=== PATIENT | male | born 1990 | race Caucasian/White ===

== ENCOUNTER 2016-10-22 19:50 | Emergency (ER) | END 2016-10-22 20:57 | disposition left against medical advice (07) | LOC: UCEAST 19:50 | DX: J11.1 Influenza due to unidentified influenza virus with other respiratory manifestations (principal); Z53.21 Procedure and treatment not carried out due to patient leaving prior to being seen by health care provider ==

== ENCOUNTER 2016-10-23 08:26 | Emergency (ER) | payer BC ==
[2016-10-23 08:48] VITALS: BP 113/78
--- NOTE | 2016-10-23 09:18 | UC ---
Respiratory Complaint HPI - HPI Summary HPI Summary: The patient comes in today for: 1. Cough: Onset: 4 weeks. Palliative/provocative: Nothing makes the cough better or worse. Quality: Bark, dry. Region: Lungs Severity: 0/10 Time: Cough comes and goes. Associated symptoms: Cough production: None. Rhinitis: Clear Wheezing/dyspnea: None. Pertussis exposure: None. 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 - Allergies/Home Medications Allergies/Adverse Reactions: Allergies Allergy/AdvReac Type Severity Reaction Status Date / Time Bee Stings Allergy Swelling Uncoded 10/23/16 08:42 Home Medications: Home Medications Kprrxhtewdziv-Lqzokgrkrja-Lq [Theraflu Cold & Cough] 1 gonsalo PO BID PRN 10/23/16 [ History Confirmed 10/23/16] PMH/Surg Hx/FS Hx/Imm Hx Previously Healthy: Yes Endocrine History Of: Denies: Diabetes, Thyroid Disease, Hyperthyroidism, Hypothyroidism, Dyslipidemia Cardiovascular History Of: Denies: Cardiac Disorders, Hypertension, Pacemaker/ICD, Myocardial Infarction , Congestive Heart Failure, Atrial Fibrillation, Deep Vein Thrombosis, Bleeding Disorders Respiratory History Of: Denies: COPD, Asthma, Bronchitis, Pneumonia, Pulmonary Embolism GI/ History Of: Denies: Gastroesophageal Reflux, Ulcer, Gastrointestinal Bleed, Gall Bladder Disease, Kidney Stones, Diverticulitis, Renal Disease, Urosepsis Neurological History Of: Denies: TIA, CVA, Dementia, Seizures, Migraine Psychological History Of: Denies: Anxiety, Depression, Bipolar Disorder, Schizophrenia, Post Traumatic Stress Disorder Cancer History Of: Denies: Lung Cancer, Colorectal Cancer, Breast Cancer, Prostate Cancer, Cervical Cancer Other History Of: Negative For: HIV, Hepatitis B, Hepatitis C, Anticoagulant Therapy - Surgical History Surgical History: Yes Surgery Procedure, Year, and Place: wisdom teeth - Family History Known Family History: Positive: Cardiac Disease, Hypertension, Diabetes - Social History Occupation: Employed Full-time Alcohol Use: Occasionally Alcohol Amount: WEEKENDS Substance Use Type: None Smoking Status (MU): Never Smoked Tobacco Have You Smoked in the Last Year: No - Immunization History Most Recent Influenza Vaccination: not this season Review of Systems Constitutional: Negative Skin: Negative Eyes: Negative ENT: Negative Respiratory: Cough Cardiovascular: Negative Gastrointestinal: Negative Genitourinary: Negative All Other Systems Reviewed And Are Negative: Yes Physical Exam Triage Information Reviewed: Yes Appearance: Well-Appearing, No Pain Distress, Well-Nourished Vital Signs: Initial Vital Signs Temp 98.1 F 10/23/16 08:44 Pulse 91 10/23/16 08:44 Resp 16 10/23/16 08:44 BP 113/78 10/23/16 08:44 Pulse Ox 99 10/23/16 08:44 Vital Signs Reviewed: Yes Eyes: Positive: Conjunctiva Clear. Negative: Discharge ENT: Positive: Hearing grossly normal. Negative: Pharyngeal erythema, Nasal congestion, Nasal drainage, TM bulging, TM dull, TM red, Tonsillar swelling, Tonsillar exudate Dental: Negative: Gross Decay/Caries @, Dental Fracture @ Neck: Positive: Supple, Nontender, No Lymphadenopathy. Negative: Nuchal Rigidity Respiratory: Positive: Chest non-tender, Lungs clear, No respiratory distress, No accessory muscle use. Negative: Crackles, Wheezing Abdomen Description: Positive: Nontender, No Organomegaly, Soft, Distended Musculoskeletal: Positive: Strength Intact, ROM Intact, No Edema Neurological: Positive: Alert, Muscle Tone Normal Psychological: Positive: Age Appropriate Behavior, Consolable Skin: Negative: rashes, breakdown UC Diagnostic Evaluation - Laboratory O2 Sat by Pulse Oximetry: 99 - Radiology Xray Interpretation: No Acute Changes - IMPRESSION: No active cardiopulmonary disease is noted. Radiology Interpretation Completed By: Radiologist Respiratory Course/Dx - Course Course Of Treatment: patient was told of the negative CXR and my diagnosis of post-infectious cough. REcommended getting PCP and follow up in one week. - Differential Dx/Diagnosis Differential Diagnosis/HQI/PQRI: Laryngitis, Lower Resp Infection, Sinusitis, Other - post infectious cough. Provider Diagnoses: Post infectious cough Discharge - Discharge Plan Condition: Stable Disposition: HOME Patient Education Materials: Chronic Cough (ED) Referrals: Cely Sharp NP [Primary Care Provider] - 1 Week (Please follow up with your primary care provider as needed. If you dont' have a primary care provider, please reference the list of local primary care providers. If you get worse, please be seen again.)
--- NOTE | 2016-10-23 09:39 | RAD ---
Indication: Chronic cough. 2 views of the chest including dual energy PA views demonstrate no mediastinal shift. Heart is of normal size and configuration. Lung og are clear. When compared to previous exam of February 28, 2015 no significant change is noted. IMPRESSION: No active cardiopulmonary disease is noted.
== END 2016-10-23 09:54 | disposition home or self-care (01) ==
LOC: UCCORT 08:26
DX: R05 Cough (principal)
CPT/HCPCS: 71020; 99212; G0463

== ENCOUNTER 2017-01-14 09:56 | Emergency (ER) | payer BC ==
[2017-01-14 10:21] VITALS: BP 124/75
--- NOTE | 2017-01-14 10:40 | UC ---
Ear Complaint HPI - HPI Summary HPI Summary: patient has had right ear pain, cough and allergy type symtpoms. - History of Current Complaint Chief Complaint: UCRespiratory Stated Complaint: COUGH,RIGHT EAR COMPLAINT Time Seen by Provider: 01/14/17 10:24 Hx Obtained From: Patient Onset/Duration: Sudden Onset, Lasting Days Severity Initially: Moderate Severity Currently: Moderate - Allergies/Home Medications Allergies/Adverse Reactions: Allergies Allergy/AdvReac Type Severity Reaction Status Date / Time Bee Stings Allergy Swelling Uncoded 01/14/17 10:09 Home Medications: Home Medications Cetirizine* [ZyrTEC 10 MG TAB*] 10 mg PO DAILY 01/14/17 [History Confirmed 01/14] PMH/Surg Hx/FS Hx/Imm Hx Previously Healthy: Yes Endocrine History Of: Denies: Diabetes, Thyroid Disease, Hyperthyroidism, Hypothyroidism, Dyslipidemia Cardiovascular History Of: Denies: Cardiac Disorders, Hypertension, Pacemaker/ICD, Myocardial Infarction , Congestive Heart Failure, Atrial Fibrillation, Deep Vein Thrombosis, Bleeding Disorders Respiratory History Of: Denies: COPD, Asthma, Bronchitis, Pneumonia, Pulmonary Embolism GI/ History Of: Denies: Gastroesophageal Reflux, Ulcer, Gastrointestinal Bleed, Gall Bladder Disease, Kidney Stones, Diverticulitis, Renal Disease, Urosepsis Neurological History Of: Denies: TIA, CVA, Dementia, Seizures, Migraine Psychological History Of: Denies: Anxiety, Depression, Bipolar Disorder, Schizophrenia, Post Traumatic Stress Disorder Cancer History Of: Denies: Lung Cancer, Colorectal Cancer, Breast Cancer, Prostate Cancer, Cervical Cancer Other History Of: Negative For: HIV, Hepatitis B, Hepatitis C, Anticoagulant Therapy - Surgical History Surgical History: Yes Surgery Procedure, Year, and Place: wisdom teeth - Family History Known Family History: Positive: Cardiac Disease, Hypertension, Diabetes - Social History Alcohol Use: Occasionally Alcohol Amount: WEEKENDS Substance Use Type: None Smoking Status (MU): Never Smoked Tobacco Have You Smoked in the Last Year: No - Immunization History Most Recent Influenza Vaccination: not this season Review of Systems Constitutional: Fever, Fatigue Skin: Negative Eyes: Negative ENT: Sore Throat, Ear Ache, Nasal Discharge Respiratory: Cough Cardiovascular: Negative Gastrointestinal: Negative Genitourinary: Negative Motor: Negative Neurovascular: Negative Musculoskeletal: Negative Neurological: Negative Psychological: Negative All Other Systems Reviewed And Are Negative: Yes Physical Exam Triage Information Reviewed: Yes Appearance: Well-Nourished, Ill-Appearing, Pain Distress Vital Signs: Initial Vital Signs Temp 97.4 F 01/14/17 10:09 Pulse 74 01/14/17 10:09 Resp 16 01/14/17 10:09 BP 124/75 01/14/17 10:09 Pulse Ox 98 01/14/17 10:09 Vital Signs Reviewed: Yes Eye Exam: Normal Eyes: Positive: Conjunctiva Clear ENT Exam: Normal ENT: Positive: Hearing grossly normal, Pharyngeal erythema, Nasal drainage, TM bulging, TM dull, TM red, Tonsillar swelling Dental Exam: Normal Neck exam: Normal Neck: Positive: Supple, Nontender, No Lymphadenopathy Respiratory Exam: Normal Respiratory: Positive: Chest non-tender, Lungs clear, Normal breath sounds Cardiovascular Exam: Normal Cardiovascular: Positive: RRR, No Murmur, Pulses Normal Abdominal Exam: Normal Abdomen Description: Positive: Nontender, No Organomegaly, Soft Bowel Sounds: Positive: Present Musculoskeletal Exam: Normal Musculoskeletal: Positive: Strength Intact, ROM Intact, No Edema Neurological Exam: Normal Neurological: Positive: Alert, Muscle Tone Normal Psychological Exam: Normal Skin Exam: Normal Ear Complaint Course/Dx - Course Course Of Treatment: hx obtained, exam performed, meds reviewed, treated for right otitis media - Differential Dx/Diagnosis Differential Diagnosis/HQI/PQRI: Cellulitis, Cerumen Impaction, Otitis Externa, Otitis Media, URI Provider Diagnoses: right otitis media Discharge - Discharge Plan Condition: Stable Disposition: HOME Patient Education Materials: Otitis Media (ED) Additional Instructions: 1. take the medication as prescribed. increase your fluid intake and get plenty of rest.
== END 2017-01-14 10:49 | disposition home or self-care (01) ==
LOC: UCCORT 09:56
DX: H66.91 Otitis media, unspecified, right ear (principal); R05 Cough
CPT/HCPCS: 99212; G0463

== ENCOUNTER 2017-02-17 10:04 | Emergency (ER) | payer BC ==
[2017-02-17 10:49] VITALS: BP 141/92
--- NOTE | 2017-02-17 11:35 | UC ---
Respiratory Complaint HPI - HPI Summary HPI Summary: The patient comes in today for: 1. Cough: Onset: 6 months. Palliative/provocative: He coughs a lot in the morning which is thin clear mucous, but other times it was thick and yellow. Quality: Dry and wet at times. Region: [place]. Severity: mild Time: Cough comes and goes. Associated symptoms: Previous treatment: He was put on an Atrovent inhaler (2 puffs four times a day). He was also treated with an ear infection for which he was treated with Augmentin. The ear infection improved, but the cough did not. The inhaler did not help. Primary care provider: Dr. Tay. Heartburn: None. Itchy nose negative, but he states that he has "mild allergies." * - History of Current Complaint Chief Complaint: UCRespiratory Stated Complaint: UPPER RESPIRATORY Time Seen by Provider: 02/17/17 11:29 Hx Obtained From: Patient - Allergies/Home Medications Allergies/Adverse Reactions: Allergies Allergy/AdvReac Type Severity Reaction Status Date / Time Bee Stings Allergy Swelling Uncoded 02/17/17 10:49 PMH/Surg Hx/FS Hx/Imm Hx Previously Healthy: No Other History Of: Negative For: HIV, Hepatitis B, Hepatitis C, Anticoagulant Therapy - Surgical History Surgical History: None Surgery Procedure, Year, and Place: wisdom teeth - Family History Known Family History: Positive: Cardiac Disease, Hypertension, Diabetes - Social History Occupation: Employed Full-time Alcohol Use: Occasionally Alcohol Amount: WEEKENDS Substance Use Type: None Smoking Status (MU): Never Smoked Tobacco Have You Smoked in the Last Year: No - Immunization History Most Recent Influenza Vaccination: not this season Review of Systems Constitutional: Negative Skin: Negative Eyes: Negative ENT: Negative Respiratory: Cough Cardiovascular: Negative Gastrointestinal: Negative Genitourinary: Negative All Other Systems Reviewed And Are Negative: Yes Physical Exam Triage Information Reviewed: Yes Appearance: Well-Appearing, No Pain Distress, Well-Nourished, Signs of Trauma - Minimal coughing in the exam room., Other: Vital Signs: Initial Vital Signs Temp 99 F 02/17/17 10:42 Pulse 98 02/17/17 10:42 Resp 14 02/17/17 10:42 BP 141/92 02/17/17 10:42 Pulse Ox 99 02/17/17 10:42 Vital Signs Reviewed: Yes Eyes: Positive: Conjunctiva Clear. Negative: Discharge ENT: Positive: Hearing grossly normal. Negative: Pharyngeal erythema, Nasal congestion, Nasal drainage, TM bulging, TM dull, TM red, Tonsillar swelling, Tonsillar exudate Dental: Negative: Gross Decay/Caries @, Dental Fracture @ Neck: Positive: Supple, Nontender, No Lymphadenopathy. Negative: Nuchal Rigidity Respiratory: Positive: Lungs clear, No respiratory distress, No accessory muscle use. Negative: Crackles, Wheezing Cardiovascular: Positive: RRR, No Murmur, Pulses Normal Abdomen Description: Positive: Nontender, No Organomegaly, Soft. Negative: Distended, Guarding Musculoskeletal: Positive: Strength Intact, ROM Intact Neurological: Positive: Alert, Muscle Tone Normal Psychological: Positive: Age Appropriate Behavior, Consolable Skin: Negative: rashes, breakdown UC Diagnostic Evaluation - Laboratory O2 Sat by Pulse Oximetry: 99 - Radiology Xray Interpretation: No Acute Changes - CT no sinusitis Radiology Interpretation Completed By: Radiologist Respiratory Course/Dx - Course Course Of Treatment: Patient told of the many causes of chronic cough, (occult GERD, occult sinusitis, tumor, polyps, postnasal drip, post-infectious cough) and that the work up for a chronic cough is best managed by his primary care provider. But, to get things started we ordered a CT of the head (-) and now will be treating for occult GERD. He is to follow up with his primary care regarding this to see if he responds and if not, what further workup he will need. - Differential Dx/Diagnosis Provider Diagnoses: chronic cough. Discharge - Discharge Plan Condition: Stable Disposition: HOME Patient Education Materials: Chronic Cough (ED) Referrals: Cely Sharp NP [Primary Care Provider] - 2 Weeks
--- NOTE | 2017-02-17 12:12 | RAD ---
CLINICAL HISTORY: Occult sinusitis COMPARISON: None TECHNIQUE: Contiguous axial CT images were obtained through the paranasal sinuses, without intravenous contrast, with coronal and sagittal multiplanar reformations. FINDINGS: NASAL CAVITY: Septum: The nasal septum is slightly deviated to the left with left-sided spurring. Right: Clear Left: Clear SINUSES AND DRAINAGE PATHWAYS: Frontal sinuses: Unremarkable. Maxillary sinuses: Unremarkable Ethmoid sinuses: Unremarkable. Ostiomeatal complex: Patent without obstruction or occlusion. Sphenoid sinuses: Unremarkable. Anatomic variations: No significant variations. Orbits: Unremarkable. Anterior cranial fossa: Normal. Other findings: None. IMPRESSION: THE PARANASAL SINUSES ARE CLEAR, WITHOUT EROSION, OSTEITIS, OR AIR-FLUID LEVEL
== END 2017-02-17 12:43 | disposition home or self-care (01) ==
LOC: UCCORT 10:04
DX: R05 Cough (principal)
CPT/HCPCS: 70486; 99212; G0463

== ENCOUNTER 2017-07-29 09:57 | Emergency (ER) | payer SELFPAY ==
[2017-07-29 10:43] VITALS: BP 130/85
--- NOTE | 2017-07-29 12:05 | UC ---
Back Pain HPI - HPI Summary HPI Summary: 27 year old male presents with injury at work . PT LIFTED A LARGE PAINTING AT WORK AND FELT A "PULLING" IN L CHEST AREA. No SOB. No CP. No RAdiating pain. no bruising. no other trauma. no falling. pain in the mid chest caused some discomfort at night to interfere with sleep and some tightness in the muscle and rib area. painting was not heavy but was over 50 inches and his arms were at full extension. 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 but no acute concerns [ End ] - History of Current Complaint Chief Complaint: UCTrauma Stated Complaint: PULLED CHEST MUSCLE (WC) Time Seen by Provider: 07/29/17 11:57 Hx Obtained From: Patient Onset/Duration: Sudden Onset Timing: Constant Severity Initially: Moderate Severity Currently: Mild Character: Stiffness Aggravating Factor(s): Movement, Lifting Alleviating Factor(s): Rest - Allergies/Home Medications Allergies/Adverse Reactions: Allergies Allergy/AdvReac Type Severity Reaction Status Date / Time Bee Stings Allergy Swelling Uncoded 07/29/17 10:39 PMH/Surg Hx/FS Hx/Imm Hx Previously Healthy: Yes Other History Of: Negative For: HIV, Hepatitis B, Hepatitis C, Anticoagulant Therapy - Surgical History Surgical History: None Surgery Procedure, Year, and Place: wisdom teeth - Family History Known Family History: Positive: Cardiac Disease, Hypertension, Diabetes - Social History Occupation: Employed Full-time Lives: With Family Alcohol Use: Occasionally Alcohol Amount: WEEKENDS Substance Use Type: None Smoking Status (MU): Never Smoked Tobacco Have You Smoked in the Last Year: No - Immunization History Most Recent Influenza Vaccination: not this season Review of Systems Musculoskeletal: Arthralgia All Other Systems Reviewed And Are Negative: Yes Physical Exam Triage Information Reviewed: Yes Appearance: Well-Appearing, No Pain Distress, Well-Nourished Vital Signs: Initial Vital Signs Temp 98.2 F 07/29/17 10:35 Pulse 88 07/29/17 10:35 Resp 18 07/29/17 10:35 BP 130/85 07/29/17 10:35 Pulse Ox 97 07/29/17 10:35 Vital Signs Reviewed: Yes Eye Exam: Normal Neck: Positive: 1 Respiratory Exam: Normal Respiratory: Positive: Lungs clear, Normal breath sounds, No respiratory distress, No accessory muscle use. Negative: Chest non-tender Cardiovascular Exam: Normal Musculoskeletal Exam: Normal Musculoskeletal: Positive: Strength Intact, ROM Intact, No Edema, Other: - mild tenderness to palpation of the sternum / manubrium. clavicle exam and xiphoid process exam WNL. no back pain . no flank pain Neurological Exam: Normal Psychological Exam: Normal Skin Exam: Normal Back Pain Course/Dx - Course Course Of Treatment: no imaging at this time. NSAIDs with meal and muscle relaxer for night time stiffness not to use during day. if sx persist then RTO for further eval and imaging - Differential Dx/Diagnosis Provider Diagnoses: Costochondritis Discharge - Discharge Plan Condition: Good Disposition: HOME Prescriptions: Cyclobenzaprine (NF) [Cyclobenzaprine 5 MG (NF)] 5 mg PO TID PRN #15 tab PRN Reason: Spasms Ibuprofen TAB* [Motrin TAB* 800 MG] 800 mg PO Q8H #30 tab Patient Education Materials: Costochondritis (ED) Referrals: Cely Sharp NP [Primary Care Provider] - 4 Days
== END 2017-07-29 12:16 | disposition home or self-care (01) ==
LOC: UCCORT 09:57
DX: M94.0 Chondrocostal junction syndrome [Tietze] (principal); Z91.030 Bee allergy status
CPT/HCPCS: 99212; G0463

== ENCOUNTER 2017-11-26 08:58 | Emergency (ER) | payer BC, OTHER ==
[2017-11-26 09:20] VITALS: BP 131/68
[2017-11-26] MEDS ORDERED: Ondansetron ODT TAB* 4 MG PO ONE (09:25)
--- NOTE | 2017-11-26 09:49 | UC ---
General HPI - HPI Summary HPI Summary: 27 yo gentleman c/o n/v/d since yesterday. Yesterday mid-afternoon felt nauseas , stomach upset, wasn't sure if hungry so ate something which he vomited soon afterwards. No hematemesis. Later in the evening developed diarrhea, multipe episodes of loose, runny / watery stool. Yellow brown. No melena no brbpr. No urinary sx, although less urination d/t watery diarrhea. No fever. No cough / sob / sore throat. No rash. No recent travel or known sick contacts. - History of Current Complaint Chief Complaint: UCGI Stated Complaint: VOMITING, DIARRHEA Time Seen by Provider: 11/26/17 09:24 Hx Obtained From: Patient Pain Intensity: 0 - Allergy/Home Medications Allergies/Adverse Reactions: Allergies Allergy/AdvReac Type Severity Reaction Status Date / Time Bee Stings Allergy Swelling Uncoded 11/26/17 09:11 Home Medications: Home Medications Ibuprofen TAB* [Motrin TAB* 800 MG] 800 mg PO Q8H PRN 11/26/17 [History Confirmed 11/26/17] PMH/Surg Hx/FS Hx/Imm Hx Previously Healthy: Yes Other History Of: Negative For: HIV, Hepatitis B, Hepatitis C, Anticoagulant Therapy - Surgical History Surgical History: None Surgery Procedure, Year, and Place: wisdom teeth - Family History Known Family History: Positive: Cardiac Disease, Hypertension, Diabetes - Social History Alcohol Use: Occasionally Alcohol Amount: WEEKENDS Substance Use Type: None Smoking Status (MU): Never Smoked Tobacco Have You Smoked in the Last Year: No - Immunization History Most Recent Influenza Vaccination: not this season Review of Systems Constitutional: Fatigue Skin: Negative Eyes: Negative ENT: Negative Respiratory: Negative Cardiovascular: Negative Gastrointestinal: Other - see hpi Genitourinary: Other - see hpi Motor: Negative Neurovascular: Negative Musculoskeletal: Negative Neurological: Negative Psychological: Negative Is Patient Immunocompromised?: No All Other Systems Reviewed And Are Negative: Yes Physical Exam Triage Information Reviewed: Yes Appearance: Well-Nourished - sitting up, looks tired, a little pale. Conversing easily, in full sentances. Ambulates without difficulty. Vital Signs: Initial Vital Signs Temp 97.5 F 11/26/17 09:13 Pulse 107 11/26/17 09:13 BP 131/68 11/26/17 09:13 Pulse Ox 98 11/26/17 09:13 Vital Signs Reviewed: Yes Eye Exam: Normal ENT Exam: Normal Neck exam: Normal Neck: Positive: Supple, Nontender, No Lymphadenopathy Respiratory Exam: Normal Respiratory: Positive: Chest non-tender, Lungs clear, Normal breath sounds, No respiratory distress, No accessory muscle use Cardiovascular Exam: Other - hr 100's, correlates with R radial pulse Cardiovascular: Positive: Pulses Normal, Brisk Capillary Refill Abdominal Exam: Other - soft, nd. no focal tenderness or mass appreciated. No cvat. Bowel Sounds: Positive: Hyperactive Musculoskeletal Exam: Normal Neurological Exam: Normal Psychological Exam: Normal - conversing easily and appropriately Skin Exam: Other - a little pale, nondiaphoretic. No visible or reported rash Course/Dx - Course Course Of Treatment: Volume depleted - IVF's offered and encouraged but Mr. Garcia declines. He will do his best to drink po fluids. Zofran x 1 here. Rx for zofran as well. Stool sample ordered. The culture was sent to the lab, remaining items will need to be brought in by pt. Blood work ordered cbc, cmp, lipase. [facility] referral pcp. Work note until Wednesday. Questions as posed answered to the best of my ability. Aware to go the ED if worse or new problems. note - consider influenza varient but doubt. - Differential Dx - Multi-Symptom Provider Diagnoses: Acute gastroenteritis with n/v. Volume depletion Discharge - Discharge Plan Condition: Stable Disposition: HOME Prescriptions: Ondansetron ODT TAB* [Zofran 4 MG Odt TAB*] 4 mg PO Q8H PRN #16 tab.odt PRN Reason: Nausea Patient Education Materials: Dehydration (ED), Gastroenteritis (ED) Forms: *Work Release Referrals: [facility] PHYSICIAN REFERRAL [Outside] Non Staff,Doctor [Primary Care Provider] - Additional Instructions: You have blood work and stool culture in the lab. You will be notified of positive results requiring treatment. Drink plenty of fluids. Eat bananas (potassium containing foods) when you are able to keep food down. Please go to the [facility] for worse or new symptoms.
[2017-11-26 14:07] LABS: ABS Basophils 0 10^3/ul (0-0.2); ABS Eosinophils 0.1 10^3/ul (0-0.6); ABS Lymphocytes 0.7 10^3/ul (1.0-4.8); ABS Monocytes 0.7 10^3/ul (0-0.8); ABS Neutrophils 7.8 10^3/ul (1.5-7.7); ABS Nucleated RBC 0 10^3/ul; Eosinophil % 1.1 % (0-6); Hematocrit 50 % (42-52); Hemoglobin 17.3 g/dl (14.0-18.0); Lymphocyte % 7.3 % (25-47); Mean Corpuscular HGB Conc 35 g/dl (31-36); Mean Corpuscular Hemoglobin 31 pg (27-31); Mean Corpuscular Volume 90 fL (80-94); Mean Platelet Volume 9 um3 (7.4-10.4); Nucleated Red Blood Cells % 0.1; Platelet Count 203 10^3/ul (150-450); Red Blood Count 5.61 10^6/ul (4.0-5.4); Red Cell Distribution Width 13 % (10.5-15); White Blood Count 9.4 10^3/ul (3.5-10.8)
[2017-11-28 07:42] LABS: EGFR Non-African American 79.1 (>60)
--- NOTE | 2017-11-28 12:07 | UC ---
- Progress Note Progress Note: Reviewed labs. Acute onset of vomiting and diarrhea. Lab work overall normal, with negative stool cultures. However, is lactoferrin and heme positive. This raises the possibility of an inflammatory bowel concern, such as colitis, but it could be a viral infection. If he is still unwell, suggest ER for evaluation OR follow up with his PMD tomorrow. Nothing has been identified that needs an antibiotic.
== END 2017-11-26 11:07 | disposition home or self-care (01) ==
LOC: UCCORT 08:58
DX: K52.9 Noninfective gastroenteritis and colitis, unspecified (principal); R11.2 Nausea with vomiting, unspecified; E86.9 Volume depletion, unspecified; R19.5 Other fecal abnormalities
CPT/HCPCS: 36415; 80053; 82272; 83630; 83690; 83986; 85025; 87045; 87046; 87077; 87425; 87899; 99212; A9270-GY; G0463

== ENCOUNTER 2019-10-10 11:56 | Emergency (ER) | payer BC ==
[2019-10-10 13:06] VITALS: BP 111/75
--- NOTE | 2019-10-10 13:26 | UC ---
FLU HPI - HPI Summary HPI Summary: 29-year-old male presenting with nasal congestion, hot and cold flashes, and body aches 5 days. Patient also notes sore throat in the morning that he believes is just from breathing through his mouth. Denies cough. Denies n/v/ d. Denies decreased oral intake. Denies known fever. States concern for the flu. Has been taking DayQuil for symptom relief. - History of Current Complaint Chief Complaint: UCGeneralIllness Stated Complaint: FLU SYMP Hx Obtained From: Patient Pain Intensity: 0 - Allergy/Home Medications Allergies/Adverse Reactions: Allergies Allergy/AdvReac Type Severity Reaction Status Date / Time Bee Stings Allergy Swelling Uncoded 10/10/19 13:03 Home Medications: Home Medications D-Methorphan/PE/Acetaminophen [Daytime Cold Multi-Symp Gelcap] 1 dose PO ONCE [History Confirmed 10/10/19] PMH/Surg Hx/FS Hx/Imm Hx Previously Healthy: Yes Other History Of: Negative For: HIV, Hepatitis B, Hepatitis C, Anticoagulant Therapy - Surgical History Surgical History: None Surgery Procedure, Year, and Place: wisdom teeth - Family History Known Family History: Positive: Cardiac Disease, Hypertension, Diabetes - Social History Alcohol Use: None Alcohol Amount: WEEKENDS Substance Use Type: None Smoking Status (MU): Never Smoked Tobacco Have You Smoked in the Last Year: No - Immunization History Most Recent Influenza Vaccination: not this season Review of Systems All Other Systems Reviewed And Are Negative: Yes Constitutional: Positive: Chills, Fatigue. Negative: Fever ENT: Positive: Sore Throat, Sinus Congestion Respiratory: Positive: Negative. Negative: Cough Cardiovascular: Positive: Negative Gastrointestinal: Positive: Negative Musculoskeletal: Positive: Myalgia Neurological: Positive: Headache Physical Exam - Summary Physical Exam Summary: Vital Signs Reviewed: Yes A+Ox3, no distress Eyes: Conjunctiva Clear ENT: Hearing grossly normal, TM x 2 clear, moist, uvula midline, no exudate, no erythema Neck: Positive: Supple Respiratory: Positive: No respiratory distress, No accessory muscle use + CTA throughout no w/r Cardiovascular: RRR nl s1, s2 no m/r Musculoskeletal Exam: PALOMARES x 4 without difficulty Neurological: Positive: Alert Psychological: Positive: age appropriate behavior Skin: Positive: no rash, no ecchymosis Vital Signs: Initial Vital Signs Temp 97.5 F 10/10/19 13:04 Pulse 83 10/10/19 13:04 Resp 13 10/10/19 13:04 BP 111/75 10/10/19 13:04 Pulse Ox 100 10/10/19 13:04 Lab Results 10/10/19 Range/Units 13:22 Influenza A (Rapid) Negative (Negative) Influenza B (Rapid) Negative (Negative) Flu Course/Dx - Course Course Of Treatment: negative rapid flu. Patient declined strep testing. Discussed with patient the likely viral etiology of symptoms. Patient instructed to continue to take OTC cough and cold medications for relief of cold symptoms. May take OTC analgesics as directed for pain relief. Directed to wash hands often, get plenty of rest and fluids, and follow up if symptoms worsen or do not resolve within 7 days. Patient voiced understanding and agreed to treatment plan. - Differential Dx/Diagnosis Differential Diagnosis/HQI/PQRI: Influenza, Upper Respiratory Infection Provider Diagnosis: Flu-like symptoms Discharge ED - Sign-Out/Discharge Documenting (check all that apply): Patient Departure All imaging exams completed and their final reports reviewed: No Studies - Discharge Plan Condition: Stable Disposition: HOME Patient Education Materials: Viral Syndrome (ED) Forms: *Work Release Referrals: [facility] [Outside] - If Needed Additional Instructions: You flu test was negative today. You may continue to take over the counter cough and cold medications for your cold symptoms. You may take ibuprofen or tylenol as directed for pain relief. Get plenty of rest and increase fluid intake. Follow up with your primary care provider or the [facility] listed below if your symptoms worsen or do not resolve within 7 days. - Billing Disposition and Condition Condition: STABLE Disposition: Home
[2019-10-10 13:33] LABS: Influenza A Molecular Negative (Negative); Influenza B Molecular Negative (Negative)
== END 2019-10-10 13:45 | disposition home or self-care (01) ==
LOC: UCCORT 11:56
DX: B34.9 Viral infection, unspecified (principal); J02.9 Acute pharyngitis, unspecified; R51 Headache; J34.89 Other specified disorders of nose and nasal sinuses; M79.10 Myalgia, unspecified site; R53.83 Other fatigue; Z91.030 Bee allergy status
CPT/HCPCS: 99211; G0463